=== PATIENT | male | born 1975 | race Caucasian/White ===

== ENCOUNTER 2021-06-19 10:12 | Emergency (ER) | payer MEDICAID ==
[~2021-06-19] VITALS: Ht 167.6 cm; Wt 77.0 kg
[2021-06-19] MEDS ORDERED: KETOROLAC 60MG/2ML VIAL IM ONE (12:00)
[2021-06-19] MEDS ORDERED: ONDANSETRON 4MG ODT PO ONE (14:30)
[2021-06-19] MEDS ORDERED: HYDROCODONE/ACETAMINOPHEN 5/325MG TABLET PO ONE (14:30)
[2021-06-19] MEDS ORDERED: IBUP-2030 MT (15:57)
[2021-06-19] MEDS ORDERED: TRAM50TA3 MT (15:57)
[2021-06-19 16:00] VITALS: BP 119/73
== END 2021-06-19 16:00 | disposition home or self-care (01) ==
LOC: ER 10:12
DX: R51.9 Headache, unspecified (principal)
CPT/HCPCS: 70450; 96372; 99284; J1885; Q0162

== ENCOUNTER 2021-06-23 08:18 | Emergency (ER) | payer MEDICAID ==
[~2021-06-23] VITALS: Ht 167.6 cm; Wt 77.0 kg
[~2021-06-23 08:18] MED LIST: IBUP-2030 MT; TRAM50TA3 MT
[2021-06-23] MEDS ORDERED: METOCLOPRAMIDE HCL 10MG/2ML VIAL IM ONE (09:00)
[2021-06-23] MEDS ORDERED: KETOROLAC 60MG/2ML VIAL IM ONE (09:00)
[2021-06-23 10:24] VITALS: BP 127/86
== END 2021-06-23 10:25 | disposition home or self-care (01) ==
LOC: ER 08:18
DX: R51.9 Headache, unspecified (principal)
CPT/HCPCS: 96372; 99284; J1885; J2765

== ENCOUNTER 2024-07-28 10:18 | Emergency (ER) | payer MEDICAID, OTHER ==
[~2024-07-28] VITALS: Ht 167.6 cm; Wt 69.0 kg
[2024-07-28 10:25] VITALS: TEMP 36.9; O2SAT 98
[2024-07-28 10:53] LABS: EOSINOPHILS % 1.3 % (0.0-5.0); HEMATOCRIT. 44.5 % (42.0-52.0); HEMOGLOBIN. 14.8 g/dL (14.0-18.0); LYMPHOCYTES % 37.6 % (20.0-50.0); MEAN CORPUSCULAR HEMOGLOBIN 30.9 pg (28.0-32.0); MEAN CORPUSCULAR HGB CONC 33.3 g/dL (31.0-37.0); MEAN CORPUSCULAR VOLUME 92.8 fL (80.0-94.0); MEAN PLATELET VOLUME 7.6 fl (7.4-10.4); MONOCYTES % 4.9 % (2.0-8.0); NEUTROPHILS % 55.2 % (40.0-76.0); PLATELET 266 x1000/uL (130-400); RED BLOOD CELL COUNT 4.79 mill/uL (4.7-6.1); RED CELL DISTRIBUTION WIDTH 12.8 % (11.6-14.6); WHITE BLOOD COUNT 5.9 x1000/uL (4.5-11.0)
[2024-07-28 11:03] LABS: CHLORIDE 105 mEq/L (98-107); POTASSIUM 4.6 mEq/L (3.5-5.1); SODIUM 141 mEq/L (136-145)
[2024-07-28 11:04] LABS: CALCIUM 9.4 mg/dL (8.7-10.4); CARBON DIOXIDE 27 mEq/L (21-32)
[2024-07-28 11:09] LABS: CREATININE 0.8 mg/dL (0.6-1.3); GLUCOSE 103 mg/dL (70-105); UREA NITROGEN BLOOD 12 mg/dL (9-23)
[2024-07-28] MEDS: SUMATRIPTAN SUCCINATE 6MG/0.5ML VIAL SUBCUT ONE (11:33)
[2024-07-28] MEDS: KETOROLAC 30MG/ML VIAL IM ONE (11:33)
[2024-07-28 11:34] LABS: CLARITY URINE CLEAR (CLEAR); COLOR URINE YELLOW (YELLOW); GLUCOSE URINE NEGATIVE (NEGATIVE); KETONES URINE NEGATIVE (NEGATIVE); LEUKOCYTE ESTERASE URINE NEGATIVE (NEGATIVE); NITRITE URINE NEGATIVE (NEGATIVE); OCCULT BLOOD URINE 1+ (NEGATIVE); PROTEIN URINE NEGATIVE (NEGATIVE); SPECIFIC GRAVITY URINE 1.018 (1.005-1.030); UROBILINOGEN URINE 0.2 E.U./dL (0.2-1.0)
[2024-07-28 11:45] VITALS: BP 128/83; PULSE 67; RESP 17; O2SAT 99
[2024-07-28 11:54] LABS: BACTERIA URINE FEW; RBC URINE 0-2 /hpf (0-2); SQUAMOUS EPITHELIAL CELL URINE NONE SEEN /lpf (RARE/1+); WBC URINE 0-2 /hpf (0-2); YEAST URINE NONE SEEN
[2024-07-28] MEDS: LACTATED RINGERS 1,000 ML IV SCH (12:40)
== END 2024-07-28 13:38 | disposition home or self-care (01) ==
LOC: ER 10:18
DX: G43.909 Migraine, unspecified, not intractable, without status migrainosus (principal); E78.00 Pure hypercholesterolemia, unspecified; Z79.899 Other long term (current) drug therapy
CPT/HCPCS: 80048; 81003; 85025; 36415; 70450; 96372; 99285; J1885; J3030; Z7610